=== PATIENT | female | born 1985 | race Caucasian/White ===

== ENCOUNTER 2019-01-23 17:09 | Emergency (ER) | payer OTHER ==
[~2019-01-23] VITALS: Ht 160 cm; Wt 136.1 kg
[~2019-01-23 17:09] MED LIST: ACIDOPHILUS1 EAC2 PO; ASCO500 PO; Aspirin EC81 MG PO; Augmentin 875-1 EACH PO; Bactrim Ds Tab1 EACH PO; CEPH500 PO; ERGO50000 PO; Humulin 70-30 V10 ML; IBUP800 PO; INSR10I; LANS30EC PO; META800 PO; METHYL FOLATE PO; METO10 PO; Norco 5-325 Ta1 EACH PO; OXYACE5T PO; Omeprazole20 M1 PO; PRENATAL TABLE1 EAC2 PO; Prenatal Table1 EAC1 PO; SUCR1 PO; VIRT PO; Vitamin B Comple1 EA PO; [UNRECOGNIZED DRUG - OTHER] PO; [UNRECOGNIZED DRUG - OTHER] PO
== END 2019-01-23 18:44 | disposition home or self-care (01) ==
LOC: ER 17:09
DX: R07.81 Pleurodynia (principal); F41.9 Anxiety disorder, unspecified; F32.9 Major depressive disorder, single episode, unspecified; K21.9 Gastro-esophageal reflux disease without esophagitis; Z79.899 Other long term (current) drug therapy; Z88.8 Allergy status to other drugs, medicaments and biological substances; Z87.891 Personal history of nicotine dependence
CPT/HCPCS: 71046; 99283-25

== ENCOUNTER 2020-01-18 11:10 | Emergency (ER) | payer OTHER, BC ==
[~2020-01-18] VITALS: Ht 157.5 cm; Wt 117.9 kg
[2020-01-18 12:02] LABS: BASOPHILS ABSOLUTE AUTO 0.05 K/mm3 (0.00-0.23); BASOPHILS PERCENT AUTO 0 % (0-2); EOSINOPHILS ABSOLUTE AUTO 0.04 K/mm3 (0.00-0.68); EOSINOPHILS PERCENT AUTO 0 % (0-6); Hematocrit 46.8 % (33.0-51.0); Hemoglobin 15.8 g/dL (11.5-16.0); IMMATURE GRAN PERCENT AUTO 1 % (0-1); LYMPHOCYTES ABSOLUTE AUTO 4.08 K/mm3 (0.84-5.20); LYMPHOCYTES PERCENT AUTO 33 % (21-46); MONOCYTES ABSOLUTE AUTO 0.71 K/mm3 (0.16-1.47); MONOCYTES PERCENT AUTO 6 % (4-13); Mean Corpuscular HGB 30.6 pg (26.0-34.0); Mean Corpuscular HGB Conc 33.8 g/dL (31.5-36.5); Mean Corpuscular Volume 91 fL (80-100); Mean Platelet Volume 9.6 fL (9.1-12.4); NEUTROPHILS ABSOLUTE AUTO 7.44 K/mm3 (1.96-9.15); NEUTROPHILS PERCENT AUTO 60 % (41-73); Platelet Count 252 K/mm3 (150-400); RDW Coefficient Variation 12.2 % (11.7-14.2); RDW Standard Deviation 40.4 fL (35.1-46.3); Red Blood Cell Count 5.16 M/mm3 (3.80-5.20); White Blood Cell Count 12.42 K/mm3 (4.00-11.30)
[2020-01-18 12:19] LABS: Alanine Aminotransfer (ALT/SGP 25 U/L (12-78); Albumin, Blood 3.9 g/dL (3.4-5.0); Albumin/Globulin Ratio 1.1 (0.8-1.8); Alk Phos 89 U/L (50-136); Anion Gap 7 mmol/L (6-16); Aspartate Aminotrans (AST/SGOT 14 U/L (12-37); Bilirubin, Total 0.3 mg/dL (0.1-1.0); Blood Urea Nitrogen 17 mg/dL (8-24); Bun/Creatinine Ratio 20.5 (12.0-20.0); CO2, Blood 25 mmol/L (21-32); Calcium, Blood 9.2 mg/dL (8.5-10.1); Chloride, Blood 108 mmol/L (98-108); Creatinine, Blood 0.83 mg/dL (0.40-1.00); Globulin, Blood 3.6 g/dL (2.2-4.0); Glomerular Filtration Rate >60 (60-); Glucose, Blood 119 mg/dL (70-99); Potassium, Blood 3.3 mmol/L (3.5-5.5); Sodium, Blood 140 mmol/L (136-145); Total Protein, Blood 7.5 g/dL (6.4-8.2)
[2020-01-18 12:36] LABS: PCO2 Arterial 32.7 mmHg (35-45); PO2 Arterial 102 mmHg (80-100); pH Blood Arterial 7.52 (7.35-7.45)
== END 2020-01-18 15:00 | disposition home or self-care (01) ==
LOC: ER 11:10
PROVIDERS: Emergency Medicine
DX: T59.891A Toxic effect of other specified gases, fumes and vapors, accidental (unintentional), initial encounter (principal); J69.1 Pneumonitis due to inhalation of oils and essences; Z88.8 Allergy status to other drugs, medicaments and biological substances; Z79.899 Other long term (current) drug therapy; Z87.891 Personal history of nicotine dependence
CPT/HCPCS: 36415; 36600; 71046; 80053; 82803; 85025; 99284-25

== ENCOUNTER 2020-12-11 12:31 | Emergency (ER) | payer OTHER ==
[~2020-12-11] VITALS: Ht 160 cm; Wt 133.8 kg
[2020-12-11 13:28] LABS: BASOPHILS ABSOLUTE AUTO 0.04 K/mm3 (0.00-0.23); BASOPHILS PERCENT AUTO 0 % (0-2); EOSINOPHILS ABSOLUTE AUTO 0.84 K/mm3 (0.00-0.68); EOSINOPHILS PERCENT AUTO 7 % (0-6); Hematocrit 46.9 % (33.0-51.0); IMMATURE GRAN ABSOLUTE AUTO 0.05 K/mm3 (0.00-0.10); IMMATURE GRAN PERCENT AUTO 0 % (0-1); LYMPHOCYTES ABSOLUTE AUTO 3.35 K/mm3 (0.84-5.20); LYMPHOCYTES PERCENT AUTO 29 % (21-46); MONOCYTES PERCENT AUTO 5 % (4-13); Mean Corpuscular HGB 29.7 pg (26.0-34.0); Mean Corpuscular HGB Conc 34.1 g/dL (31.5-36.5); Mean Corpuscular Volume 87 fL (80-100); Mean Platelet Volume 9.8 fL (9.1-12.4); NEUTROPHILS ABSOLUTE AUTO 6.52 K/mm3 (1.96-9.15); NEUTROPHILS PERCENT AUTO 57 % (41-73); Platelet Count 298 K/mm3 (150-400); RDW Coefficient Variation 12.2 % (11.7-14.2); Red Blood Cell Count 5.39 M/mm3 (3.80-5.20)
[2020-12-11 13:47] LABS: Alanine Aminotransfer (ALT/SGP 28 U/L (12-78); Albumin, Blood 4.4 g/dL (3.4-5.0); Albumin/Globulin Ratio 1.2 (0.8-1.8); Alk Phos 86 U/L (50-136); Anion Gap 5 mmol/L (6-16); Aspartate Aminotrans (AST/SGOT 20 U/L (12-37); Bilirubin, Total 0.5 mg/dL (0.1-1.0); Blood Urea Nitrogen 11 mg/dL (8-24); Bun/Creatinine Ratio 13.5 (12.0-20.0); CO2, Blood 25 mmol/L (21-32); Calcium, Blood 9.8 mg/dL (8.5-10.1); Chloride, Blood 105 mmol/L (98-108); Creatinine, Blood 0.82 mg/dL (0.40-1.00); Globulin, Blood 3.8 g/dL (2.2-4.0); Glomerular Filtration Rate >60 (60-); Glucose, Blood 116 mg/dL (70-99); Potassium, Blood 3.7 mmol/L (3.5-5.5); Sodium, Blood 135 mmol/L (136-145); Total Protein, Blood 8.2 g/dL (6.4-8.2)
[2020-12-11 14:16] LABS: Source, Urine Clean Catch
[2020-12-11 14:20] LABS: Bilirubin, Urine Neg (Neg); Blood, Urine Neg (Neg); Glucose Qualitative, Urine Neg (Neg); Ketones, Urine Neg (Neg); Leukocyte Esterase, Urine 1+ (Neg); Nitrite, Urine Neg (Neg); Protein, Urine Neg (Neg); Urobilinogen, Urine NORM (Normal)
[2020-12-11 14:31] LABS: Appearance, Urine Hazy (Clear); Color, Urine Yellow (P-Yellow)
[2020-12-11 14:33] LABS: Bacteria Mod /hpf; Red Blood Cells, Urine 0-2 /hpf (0-2); Squamous Epithelial Cells Mod /hpf (Few)
== END 2020-12-11 14:17 | disposition left against medical advice (07) ==
LOC: ER 12:31
PROVIDERS: Physician Assistant
DX: R10.9 Unspecified abdominal pain (principal); M54.9 Dorsalgia, unspecified; R19.7 Diarrhea, unspecified; Z53.21 Procedure and treatment not carried out due to patient leaving prior to being seen by health care provider
CPT/HCPCS: 36415; 74176; 80053; 81001; 83690; 85025; 87086; 99284-25

== ENCOUNTER 2021-09-18 07:37 | Day surgery (SDC) | payer OTHER ==
[~2021-09-18] VITALS: Ht 160 cm; Wt 134.6 kg
[~2021-09-18 07:37] MED LIST changes: +Buspirone HCl15 MG; +DULO30; +HYDHCL25; +METO10; +OMEP20ER; +ZYRTEC10 M2
[2021-09-18] MEDS ORDERED: Cyclobenzaprine5 MG (08:19)
[2021-09-18] MEDS ORDERED: PROM25 (08:19)
--- NOTE | 2021-09-18 09:05 | NUR ---
09/18/21 0905 MICHELLE COTTON 4 ATTEMPTS AT IV. FIRST ATTEMPT BY MA IN R HAND MISSED. SECOND ATTEMPTS AT IV BY MA MISSED IN R FOREARM. THIRD ATTEMPT BY RN IN R WRIST MISSED. FOURTH ATTEMPT BY MA IN L HAND SUCCESSFUL.
== END 2021-09-18 10:01 | disposition home or self-care (01) ==
LOC: ORSCSDS 07:37
PROVIDERS: Student in an Organized Health Care Education/Training Program
PROC: 0DB58ZX Excision of Esophagus, Via Natural or Artificial Opening Endoscopic, Diagnostic (ICD-10-PCS; principal; 2021-09-18 09:15)
PROC: 0DB68ZX Excision of Stomach, Via Natural or Artificial Opening Endoscopic, Diagnostic (ICD-10-PCS; principal; 2021-09-18 09:15)
PROC: 0DB48ZX Excision of Esophagogastric Junction, Via Natural or Artificial Opening Endoscopic, Diagnostic (ICD-10-PCS; principal; 2021-09-18 09:15)
PROC: 0DB98ZX Excision of Duodenum, Via Natural or Artificial Opening Endoscopic, Diagnostic (ICD-10-PCS; principal; 2021-09-18 09:15)
DX: R11.2 Nausea with vomiting, unspecified (principal); R19.7 Diarrhea, unspecified; K20.90 Esophagitis, unspecified without bleeding; K58.0 Irritable bowel syndrome with diarrhea; F41.8 Other specified anxiety disorders; E66.01 Morbid (severe) obesity due to excess calories; J45.909 Unspecified asthma, uncomplicated; Z68.43 Body mass index [BMI] 50.0-59.9, adult; L85.9 Epidermal thickening, unspecified; Q45.8 Other specified congenital malformations of digestive system; Z87.891 Personal history of nicotine dependence; Z79.899 Other long term (current) drug therapy
CPT/HCPCS: 88305; 88342; J2704; J7120

== ENCOUNTER → 2023-05-22 | Outpatient (CLI) | payer OTHER ==
[~2023-05-22] MED LIST changes: +Cyclobenzaprine5 MG; +DULOXETINE HCL60 M1 PO; +PROM25; +Percocet 5-3251 EACH PO; +SULTRIDS PO; +TOPI50 PO; +VITAMIN D32000 UNI1 PO
[2023-05-22 17:39] LABS: BASOPHILS ABSOLUTE AUTO 0.02 K/mm3 (0.00-0.23); BASOPHILS PERCENT AUTO 0 % (0-2); EOSINOPHILS ABSOLUTE AUTO 0.08 K/mm3 (0.00-0.68); EOSINOPHILS PERCENT AUTO 1 % (0-6); Hemoglobin 15.9 g/dL (11.5-16.0); IMMATURE GRAN ABSOLUTE AUTO 0.04 K/mm3 (0.00-0.10); IMMATURE GRAN PERCENT AUTO 1 % (0-1); LYMPHOCYTES ABSOLUTE AUTO 2.04 K/mm3 (0.84-5.20); LYMPHOCYTES PERCENT AUTO 28 % (21-46); MONOCYTES ABSOLUTE AUTO 0.57 K/mm3 (0.16-1.47); MONOCYTES PERCENT AUTO 8 % (4-13); Mean Corpuscular HGB 29.8 pg (26.0-34.0); Mean Corpuscular HGB Conc 33.8 g/dL (31.5-36.5); Mean Corpuscular Volume 88 fL (80-100); Mean Platelet Volume 9.2 fL (9.1-12.4); NEUTROPHILS PERCENT AUTO 63 % (41-73); Platelet Count 240 K/mm3 (150-400); RDW Coefficient Variation 12.5 % (11.7-14.2); RDW Standard Deviation 40.4 fL (35.1-46.3); Red Blood Cell Count 5.33 M/mm3 (3.80-5.20); White Blood Cell Count 7.35 K/mm3 (4.00-11.30)
[2023-05-22 17:51] LABS: Albumin, Blood 4.2 g/dL (3.4-5.0); Bilirubin, Total 0.7 mg/dL (0.1-1.0); Bun/Creatinine Ratio 12.9 (12.0-20.0); Calcium, Blood 9.7 mg/dL (8.5-10.1); Creatinine, Blood 0.85 mg/dL (0.40-1.00); Globulin, Blood 4.2 g/dL (2.2-4.0); Potassium, Blood 3.5 mmol/L (3.5-5.5); Total Protein, Blood 8.4 g/dL (6.4-8.2)
== END ==
LOC: LAB SHORT 17:34 → LAB 17:34
PROVIDERS: Emergency Medicine
DX: K92.1 Melena (principal)
CPT/HCPCS: 80053; 83690; 85025

== ENCOUNTER 2023-05-26 08:00 | Emergency (ER) | payer OTHER ==
[~2023-05-26] VITALS: Ht 165.1 cm; Wt 108.9 kg
[~2023-05-26 08:00] MED LIST changes: -DULOXETINE HCL60 M1 PO; -Percocet 5-3251 EACH PO; -SULTRIDS PO; -TOPI50 PO; -VITAMIN D32000 UNI1 PO
[2023-05-26 08:16] VITALS: BP 137/86
[2023-05-26] MEDS ORDERED: SULTRIDS PO (08:33)
[2023-05-26] MEDS ORDERED: CEPH500 PO (08:33)
[2023-05-26] MEDS ORDERED: Percocet 5-3251 EACH PO (08:33)
== END 2023-05-26 08:47 | disposition home or self-care (01) ==
LOC: ER 08:00
DX: L03.116 Cellulitis of left lower limb (principal); Z88.1 Allergy status to other antibiotic agents; Z88.8 Allergy status to other drugs, medicaments and biological substances; Z91.040 Latex allergy status; Z91.048 Other nonmedicinal substance allergy status; Z79.899 Other long term (current) drug therapy; Z87.891 Personal history of nicotine dependence
CPT/HCPCS: 99283; A9270

== ENCOUNTER 2023-05-29 11:36 | Emergency (ER) | payer OTHER ==
[~2023-05-29] VITALS: Ht 157.5 cm; Wt 136.1 kg
[~2023-05-29 11:36] MED LIST changes: +Percocet 5-3251 EACH PO; +SULTRIDS PO
[2023-05-29 11:45] VITALS: BP 139/87
[2023-05-29] MEDS ORDERED: DULOXETINE HCL60 M1 PO (12:13)
[2023-05-29] MEDS ORDERED: TOPI50 PO (12:14)
[2023-05-29] MEDS ORDERED: VITAMIN D32000 UNI1 PO (12:14)
[2023-05-29] MEDS ORDERED: Norco 5-325 Ta1 EACH PO (12:37)
== END 2023-05-29 12:39 | disposition home or self-care (01) ==
LOC: ER 11:36
DX: L03.116 Cellulitis of left lower limb (principal); S71.152D Open bite, left thigh, subsequent encounter; X58.XXXD Exposure to other specified factors, subsequent encounter; Z91.040 Latex allergy status; Z88.8 Allergy status to other drugs, medicaments and biological substances; Z91.09 Other allergy status, other than to drugs and biological substances; Z79.2 Long term (current) use of antibiotics; Z79.899 Other long term (current) drug therapy; Z87.891 Personal history of nicotine dependence
CPT/HCPCS: 96372; 99282-25; J1885

== ENCOUNTER 2025-04-18 09:51 | Emergency (ER) | payer OTHER ==
[~2025-04-18] VITALS: Ht 160 cm; Wt 122.0 kg
[~2025-04-18 09:51] MED LIST changes: +DULOXETINE HCL60 M1 PO; +TOPI50 PO; +VITAMIN D32000 UNI1 PO
[2025-04-18 11:28] LABS: BASOPHILS ABSOLUTE AUTO 0.04 K/mm3 (0.00-0.23); BASOPHILS PERCENT AUTO 0 % (0-2); EOSINOPHILS ABSOLUTE AUTO 0.08 K/mm3 (0.00-0.68); EOSINOPHILS PERCENT AUTO 0 % (0-6); Hematocrit 40.9 % (33.0-51.0); Hemoglobin 14.1 g/dL (11.5-16.0); IMMATURE GRAN ABSOLUTE AUTO 0.16 K/mm3 (0.00-0.10); IMMATURE GRAN PERCENT AUTO 1 % (0-1); LYMPHOCYTES ABSOLUTE AUTO 2.83 K/mm3 (0.84-5.20); LYMPHOCYTES PERCENT AUTO 14 % (21-46); MONOCYTES ABSOLUTE AUTO 1.22 K/mm3 (0.16-1.47); MONOCYTES PERCENT AUTO 6 % (4-13); Mean Corpuscular HGB Conc 34.5 g/dL (31.5-36.5); Mean Corpuscular Volume 87 fL (80-100); NEUTROPHILS ABSOLUTE AUTO 15.91 K/mm3 (1.96-9.15); NEUTROPHILS PERCENT AUTO 79 % (41-73); NRBC ABSOLUTE 0.00 K/mm3 (0.00-0.02); NRBC Auto 0.0 /100 WBC (0.0-0.2); Platelet Count 326 K/mm3 (150-400); RDW Coefficient Variation 12.2 % (11.7-14.2); RDW Standard Deviation 38.8 fL (35.1-46.3)
[2025-04-18 11:46] LABS: Alanine Aminotransfer (ALT/SGP 51.0 U/L (12-78); Albumin, Blood 3.5 g/dL (3.4-5.0); Albumin/Globulin Ratio 0.7 (0.8-1.8); Anion Gap 11.0 mmol/L (3-11); Aspartate Aminotrans (AST/SGOT 35.0 U/L (12-37); Bilirubin, Total 0.9 mg/dL (0.1-1.0); Blood Urea Nitrogen 15.0 mg/dL (8-24); CO2, Blood 20.0 mmol/L (21-32); Calcium, Blood 9.3 mg/dL (8.5-10.1); Chloride, Blood 107.0 mmol/L (98-108); Creatinine, Blood 0.86 mg/dL (0.40-1.00); Globulin, Blood 4.9 g/dL (2.2-4.0); Glucose, Blood 120.0 mg/dL (70-99); Potassium, Blood 3.6 mmol/L (3.5-5.5); Sodium, Blood 134.0 mmol/L (136-145); Total Protein, Blood 8.4 g/dL (6.4-8.2)
[2025-04-18] MEDS ORDERED: CefTRIAXone Sodium 1,000 MG in NS 100 ML IV ONE (11:55)
[2025-04-18] MEDS ORDERED: ONDA4ODT MM (12:01)
[2025-04-18] MEDS ORDERED: CEPH500 PO (12:01)
[2025-04-18 12:39] VITALS: BP 141/87
== END 2025-04-18 12:40 | disposition home or self-care (01) ==
LOC: ER 09:51
PROVIDERS: Physician Assistant
DX: L03.116 Cellulitis of left lower limb (principal); L03.317 Cellulitis of buttock; Z88.8 Allergy status to other drugs, medicaments and biological substances; Z79.2 Long term (current) use of antibiotics; Z79.899 Other long term (current) drug therapy; Z91.040 Latex allergy status
CPT/HCPCS: 36415; 80053; 83605; 84703; 85025; J0696

== ENCOUNTER 2025-04-19 07:33 | Emergency (ER) | payer OTHER ==
[~2025-04-19] VITALS: Ht 165.1 cm; Wt 108.9 kg
[~2025-04-19 07:33] MED LIST changes: +ONDA4ODT MM
[2025-04-19 07:51] VITALS: BP 144/94
[2025-04-19] MEDS ORDERED: Bacitracin Zinc Oint 1GRAM UD Packet TOP ONE (08:15)
== END 2025-04-19 08:30 | disposition home or self-care (01) ==
LOC: ER 07:33
DX: L03.116 Cellulitis of left lower limb (principal); Z87.891 Personal history of nicotine dependence
CPT/HCPCS: 99282